=== PATIENT | female | born 1955 | race Caucasian/White ===

== ENCOUNTER 2017-07-16 08:03 | Day surgery (SDC) | payer BC ==
--- NOTE | 2017-07-16 08:01 | PCM.OPNOTE ---
- General Post-Op/Procedure Note Date of Surgery/Procedure: 07/16/17 Operative Procedure(s): Laparoscopic assisted vaginal hysterectomy with bilateral salpingo-oophorectomy Findings: Uterus with multiple subserosal small fibroids. Ovaries appeared atrophic. Normal appearance of the fallopian tubes. Pre Op Diagnosis: History of breast cancer on tamoxifen. Endometrial cells on pap. Thickened endometrial lining Post-Op Diagnosis: Same Anesthesia Technique: General ET Tube Primary Surgeon: Jessica Hernandez Secondary Surgeon: Denisse Lynn Anesthesia Provider: Amadou Gongora Pathology: Cervix, uterus, fallopian tubes, and ovaries sent to pathology Fluid Replacement, Intraop: 1,500 Output, Urine Amount: 350 EBL in mLs: 50 Complications: None Condition: Good Free Text/Narrative:: The risks, benefits, indications, potential complications, and alternatives were explained to the patient and informed consent obtained. The patient was taken to the Operating Room where general anesthesia was induced without complication. The patient was placed in dorsal lithotomy with Mario Stirrups and an exam under anesthesia revealed the findings detailed above. The patient was then prepped and draped in the usual sterile fashion. A sponge stick was placed into the vagina for uterine manipulation given significant cervical stenosis. A Cook catheter was placed in sterile fashion. Attention was then turned to the patients abdomen where a Veress needle was carefully introduced into the peritoneal cavity while tenting the abdominal wall. Intraperitoneal placement was confirmed by free flow of saline into the abdomen from a syringe open to gravity and with a low intraabdominal pressure with insufflation of C02 gas on low flow. The gas was increased to high flow and a pneumoperitoneum was obtained with C02 gas to a pressure of 15 mm Hg. A 5 mm skin incision was made in a vertical fashion in the umbilical fold and a 5 mm blunt trocar was inserted into the abdomen with direct visualization of the laparoscope through the clear view trocar lens. 5 mm skin incisions were made in both the left and right lower quadrants approximately 10 cm lateral and 3 cm inferior to the umbilicus. 5 mm blunt trocars were inserted into the abdomen under direct visualization with care to avoid the abdominal wall vasculature. A blunt probe and grasper were inserted through the accessory ports and a survey of the abdomen revealed the findings detailed above. The right ovary was elevated with a blunt grasper and the right ureter was identified. The right infundibulopelvic pelvic ligament was grasped with the LigaSure and doubly burned and then transected. The LigaSure was then used to cauterize and transect along the fallopian tube from the level of the ovary to the uterine cornua. The round ligament on the right was then elevated, cauterized, and transected with the Ligasure. Hemostasis was noted. Next, the vesicouterine peritoneum was elevated gently with a blunt grasper and the Ligasure was used dissect the vesicouterine peritoneum to make a bladder flap. Two more small bites along the right side of the uterus were made with the Ligasure to skeletonize the uterine artery. Hemostasis was noted. The exact same procedure was carried out on the left. Hemostasis as noted. The CO2 gas was turned off and the laparoscope was removed. Attention was then turned to the vaginal portion of the procedure. A short weighted speculum was placed in the vagina, and the cervix was grasped with a tenaculum. The cervix was injected circumferentially with 15 cc of lidocaine with dilute epinephrine. The cervix was then circumferentially incised with a scalpel. A Raytec was used to bluntly dissect the cervix circumferentially until an avascular plane was obtained. The posterior cul-de-sac was entered sharply without difficulty. The short weighted speculum was replaced by the long weighted speculum. The uterosacral ligaments were grasped on either side with the LigaSure, cauterized, and transected. The bladder was dissected off the pubovesical cervical fascia anteriorly with a sponge and blunt dissection. The anteiror cul-de-sac was then entered sharply without difficulty. The cardinal ligaments were then serially clamped on both sides with the LigaSure, cauterized, and transected. The uterine arteries were then clamped, cauterized, and transected with the Ligasure. The fundus and adnexa were confirmed to be free of any further peritoneal attachments and then were pulled out through the vagina. The posterior peritoneum was closed to the vaginal cuff with a running , lock suture of 0 Vicryl. The vaginal cuff was closed with an 0-Vicryl in a running locked fashion. Hemostasis was noted. Attention was then again turned to the abdomen. All members of the surgical team changed gloves. The laparoscope was again inserted and the abdomen was again insufflated with CO2. The pedicles were again visualized. Hemostasis was confirmed. The patient was taken out of Trendelenberg position. The accessory trocars were removed under direct visualization. The pneumoperitoneum was allowed to escape. The umbilical trocar was removed and lastly the camera was removed from the abdomen under direct visualization to confirm no herniation into the port site. All skin incisions were re-approximated with 4-0 Monocryl and sealed with Dermabond. Hemostasis was noted. A total of 10 cc of 0.25% Marcaine was injected into the subcutaneous tissues surrounding the skin incisions for local anesthesia. All sponge, lap, needle, and instrument counts were correct x 2. The patient tolerated the procedure well and there were no complications.
[~2017-07-16 08:03] MED LIST: Bupivacaine 0.5% 30 ML SDV ONE; Lactated Ringers 1,000 ML IV SCH; Lidocaine 1% with EPINEPHrine 1:100,000 20 ML MDV ONE; Lidocaine 1%/Sod Bicarbonate in NS 8.4% 1 ML Syringe IDERM PRN; Sodium Chloride 0.9% 10 ML Syringe FLUSH PRN
[2017-07-16] MEDS ORDERED: Propofol 200 MG/20 ML SDV ONE (08:43)
[2017-07-16] MEDS ORDERED: Midazolam 1 MG/ML 2 ML SDV ONE (08:43)
[2017-07-16] MEDS ORDERED: fentaNYL 250 MCG/5 ML SDV ONE (08:43)
[2017-07-16] MEDS ORDERED: Ondansetron 4 MG/2 ML SDV ONE (08:46)
[2017-07-16] MEDS ORDERED: Dexamethasone 4 MG/ML 5 ML MDV ONE (08:46)
[2017-07-16] MEDS ORDERED: Rocuronium 50 MG/5 ML Vial ONE (08:46)
[2017-07-16] MEDS ORDERED: Lidocaine 1% 4 ML ONE (08:46)
[2017-07-16] MEDS ORDERED: ceFAZolin 1 GM Vial ONE (08:47)
--- NOTE | 2017-07-16 10:00 | PCM.PREANE ---
Preanesthetic Assessment - Procedure Proposed Procedure: LAVH with BSO - Anesthesia/Transfusion/Family Hx Anesthesia History: Prior Anesthesia Without Reaction Family History of Anesthesia Reaction: No Transfusion History: No Prior Transfusion(s) - Review of Systems General: No Symptoms Pulmonary: No Symptoms Cardiovascular: Other (HTN) Gastrointestinal: No Symptoms Neurological: No Symptoms Other: Reports: None - Physical Assessment NPO Status Date: 07/16/17 NPO Status Time: 07:00 O2 Sat by Pulse Oximetry: 100 Respiratory Rate: 16 Vital Signs: Last Vital Signs Temp 36.7 C 07/16/17 08:10 Pulse 65 07/16/17 08:10 Resp 16 07/16/17 08:10 BP 146/65 H 07/16/17 08:10 Pulse Ox 100 07/16/17 08:10 Height: 1.68 m Weight: 63.503 kg ASA Class: 2 Mental Status: Alert & Oriented x3 Airway Class: Mallampati = 1 Dentition: Reports: Normal Dentition Thyro-Mental Finger Breadths: 3 Mouth Opening Finger Breadths: 3 ROM/Head Extension: Full Lungs: Clear to Auscultation, Normal Respiratory Effort Cardiovascular: Regular Rate, Regular Rhythm - Lab Values: Laboratory Last Values WBC 5.26 K/mm3 (3.98-10.04) 07/16/17 08:35 RBC 4.50 M/mm3 (3.98-5.22) 07/16/17 08:35 Hgb 14.1 gm/L (11.2-15.7) 07/16/17 08:35 Hct 42.6 % (34.1-44.9) 07/16/17 08:35 MCV 94.7 fl (79.4-94.8) 07/16/17 08:35 MCH 31.3 pg (25.6-32.2) 07/16/17 08:35 MCHC 33.1 g/dl (32.2-35.5) 07/16/17 08:35 RDW Std Deviation 41.7 fL (36.4-46.3) 07/16/17 08:35 Plt Count 308 K/mm3 (182-369) 07/16/17 08:35 MPV 10.0 fl (9.4-12.3) 07/16/17 08:35 Neut % (Auto) 59.1 % (34.0-71.1) 07/16/17 08:35 Lymph % (Auto) 27.8 % (19.3-51.7) 07/16/17 08:35 [place] % (Auto) 8.9 % (4.7-12.5) 07/16/17 08:35 Eos % (Auto) 3.0 (0.7-5.8) 07/16/17 08:35 Baso % (Auto) 1.0 % (0.1-1.2) 07/16/17 08:35 Neut # (Auto) 3.11 K/mm3 (1.56-6.13) 07/16/17 08:35 Lymph # (Auto) 1.46 K/mm3 (1.18-3.74) 07/16/17 08:35 [place] # (Auto) 0.47 K/mm3 (0.24-0.36) H 07/16/17 08:35 Eos # (Auto) 0.16 K/mm3 (0.04-0.36) 07/16/17 08:35 Baso # (Auto) 0.05 K/mm3 (0.01-0.08) 07/16/17 08:35 Sodium 147 mEq/L (136-145) H 07/16/17 08:35 Potassium 4.9 mEq/L (3.5-5.1) 07/16/17 08:35 Chloride 109 mEq/L (98-107) H 07/16/17 08:35 Carbon Dioxide 28 mEq/L (21-32) 07/16/17 08:35 Anion Gap 14.9 (5-15) 07/16/17 08:35 BUN 17 mg/dL (7-18) 07/16/17 08:35 Creatinine 0.9 mg/dL (0.55-1.02) 07/16/17 08:35 Est Cr Clr Drug Dosing 62.23 mL/min 07/16/17 08:35 Estimated GFR (MDRD) > 60 mL/min (>60) 07/16/17 08:35 BUN/Creatinine Ratio 18.9 (14-18) H 07/16/17 08:35 Glucose 103 mg/dL (74-106) 07/16/17 08:35 Calcium 9.3 mg/dL (8.5-10.1) 07/16/17 08:35 Blood Type A POSITIVE 07/16/17 08:35 Gel Antibody Screen Negative 07/16/17 08:35 - Allergies Allergies/Adverse Reactions: Allergies Allergy/AdvReac Type Severity Reaction Status Date / Time bee venom protein (honey bee) Allergy Patient Verified 07/16/17 09:08 did not list. - Blood Blood Available: No Product(s) Available: None - Anesthesia Plan Pre-Op Medication Ordered: None - Acknowledgements Anesthesia Type Planned: General Anesthesia (OETT) Pt an Appropriate Candidate for the Planned Anesthesia: Yes Alternatives and Risks of Anesthesia Discussed w Pt/Guardian: Yes Pt/Guardian Understands and Agrees with Anesthesia Plan: Yes PreAnesthesia Questionnaire Cardiovascular History: Reports: Hypertension Gastrointestinal History: Reports: Irritable Bowel Syndrome Oncologic (Cancer) History: Reports: Breast - Past Surgical History GI Surgical History: Reports: Colonoscopy, Hernia Repair/Other Female Surgical History: Reports: D&C, Other (See Below) Other Female Surgeries/Procedures: hysteroscopy, colposcopy Oncologic Surgical History: Reports: Lumpectomy Dermatological Surgical History: Reports: Other (See Below) - SUBSTANCE USE Smoking Status *Q: Never Smoker Second Hand Smoke Exposure: No Days Per Week of Alcohol Use: 4 Number of Drinks Per Day: 1 Total Drinks Per Week: 4 Recreational Drug Use History: No - HOME MEDS Home Medications: Home Meds Calcium Carbonate/Vitamin D3 [Caltrate 600 + D Soft Chew Tab] 1 tab PO DAILY 11/25 [History] Losartan [Cozaar] 50 mg PO DAILY 11/19/13 [History] Multivitamin [Multi-Vitamin Daily] 1 tab PO DAILY 11/19/13 [History] Tamoxifen [Nolvadex] 20 mg PO DAILY 11/19/13 [History] Vitamin B Complex [B Complex] 1 tab PO DAILY 11/19/13 [History] - CURRENT (IN HOUSE) MEDS Current Meds: Current Medications Lactated Ringer's (Ringers, Lactated) 1,000 mls @ 125 mls/hr IV ASDIRECTED BRANDEE Stop: 07/16/17 23:00 Last Admin: 07/16/17 08:35 Dose: 125 mls/hr Lidocaine/Sodium Bicarbonate (Buffered Lidocaine 1% In Ns 8.4%) 0.25 ml IDERM ONETIME PRN PRN Reason: Prior to IV Start Stop: 07/16/17 18:00 Last Admin: 07/16/17 08:34 Dose: 0.25 ml Sodium Chloride (Saline Flush) 10 ml FLUSH ASDIRECTED PRN PRN Reason: Keep Vein Open Stop: 07/16/17 18:00 Discontinued Medications Bupivacaine HCl (Marcaine 0.5%) Confirm Administered Dose 30 ml .ROUTE .STK-MED ONE Stop: 07/16/17 07:58 Cefazolin Sodium (Ancef) Confirm Administered Dose 2 gm .ROUTE .STK-MED ONE Stop: 07/16/17 08:48 Dexamethasone (Dexamethasone) Confirm Administered Dose 20 mg .ROUTE .ST-MED ONE Stop: 07/16/17 08:47 Fentanyl (Sublimaze) Confirm Administered Dose 250 mcg .ROUTE .ST-MED ONE Stop: 07/16/17 08:44 Hydromorphone HCl (Dilaudid) Confirm Administered Dose 0.5 mg .ROUTE .STK-MED ONE Stop: 07/16/17 10:06 Hydromorphone HCl (Dilaudid) Confirm Administered Dose 0.5 mg .ROUTE .ST-MED ONE Stop: 07/16/17 10:06 Lidocaine HCl (Xylocaine-Mpf 1%) Confirm Administered Dose 4 mls @ as directed .ROUTE .ST-MED ONE Stop: 07/16/17 08:47 Lidocaine/Epinephrine (Xylocaine 1% With Epinephrine 1:100,000) Confirm Administered Dose 20 ml .ROUTE .STK-MED ONE Stop: 07/16/17 07:58 Midazolam HCl (Versed 1 Mg/Ml) Confirm Administered Dose 2 mg .ROUTE .STK-MED ONE Stop: 07/16/17 08:44 Ondansetron HCl (Zofran) Confirm Administered Dose 4 mg .ROUTE .ST-MED ONE Stop: 07/16/17 08:47 Propofol (Diprivan 20 Ml) Confirm Administered Dose 200 mg .ROUTE .STK-MED ONE Stop: 07/16/17 08:44 Rocuronium [place] (Zemuron) Confirm Administered Dose 50 mg .ROUTE .STK-MED ONE Stop: 07/16/17 08:47
[2017-07-16] MEDS ORDERED: Promethazine 6.25 MG in Sodium Chloride 0.9% 50 ML IV PRN (10:01)
[2017-07-16] MEDS ORDERED: Ondansetron 4 MG/2 ML SDV IVPUSH PRN (10:01)
[2017-07-16] MEDS ORDERED: Meperidine PF 50 MG/ML Syringe IVPUSH PRN (10:01)
[2017-07-16] MEDS ORDERED: diphenhydrAMINE 50 MG/ML SDV IVPUSH PRN (10:01)
[2017-07-16] MEDS ORDERED: fentaNYL 100 MCG/2 ML SDV IVPUSH PRN (10:01)
[2017-07-16] MEDS ORDERED: HYDROmorphone 0.5 MG/0.5 ML Syringe IVPUSH ONE (10:01)
[2017-07-16] MEDS ORDERED: HYDROmorphone 0.5 MG/0.5 ML Syringe ONE ×2 (10:05)
--- NOTE | 2017-07-16 12:01 | PCM.POSTAN ---
POST ANESTHESIA ASSESSMENT - MENTAL STATUS Mental Status: Alert, Oriented - VITAL SIGNS Pulse Rate: 70 SaO2: 100 Resp Rate: 12 Blood Pressure: 154/75 Temperature: 36.6 C - RESPIRATORY Respiratory Status: Respiratory Rate WNL, Airway Patent, O2 Saturation Stable, Supplemental Oxygen - CARDIOVASCULAR CV Status: Pulse Rate WNL, Blood Pressure Stable - GASTROINTESTINAL GI Status: No Symptoms - PAIN Pain Score: 0 - POST OP HYDRATION Hydration Status: Adequate & Stable
[2017-07-16] MEDS ORDERED: Ketorolac 30 MG/ML SDV ONE (12:10)
--- NOTE | 2017-07-16 13:55 | PCM48HPAN ---
Post Anesthesia Note - EVALUATION WITHIN 48HRS OF ANESTHETIC Vital Signs in Normal Range: Yes Patient Participated in Evaluation: Yes Respiratory Function Stable: Yes Airway Patent: Yes Cardiovascular Function Stable: Yes Hydration Status Stable: Yes Pain Control Satisfactory: Yes Nausea and Vomiting Control Satisfactory: Yes Mental Status Recovered: Yes
== END 2017-07-16 15:36 | disposition home or self-care (01) ==
LOC: JD.SDS 08:03
PROVIDERS: ATTEND Obstetrics & Gynecology
DX: N84.0 Polyp of corpus uteri (principal); N87.9 Dysplasia of cervix uteri, unspecified; D25.9 Leiomyoma of uterus, unspecified; N83.312 Acquired atrophy of left ovary; N83.311 Acquired atrophy of right ovary; I10 Essential (primary) hypertension; Z91.030 Bee allergy status
CPT/HCPCS: 36415; 58552; 80048; 85025; 86850; 86900; 86901; 93005; J0690; J1100; J1170; J1885; J2250; J2405; J3010; J7120; 00840; J2001; J2704

== ENCOUNTER 2025-01-25 16:23 | Emergency (ER) | payer MEDICARE, OTHER ==
[2025-01-25] MEDS ORDERED: Sodium Chloride 0.9% 10 ML Syringe FLUSH PRN (16:34)
[2025-01-25 17:04] LABS: BASOPHILS ABSOLUTE AUTO 0.1 K/mm3 (0.0-0.2); BASOPHILS PERCENT AUTO 0.8 % (0.0-1.0); EOSINOPHILS ABSOLUTE AUTO 0.3 K/mm3 (0.0-0.4); EOSINOPHILS PERCENT AUTO 3.4 % (0.0-6.0); IMMATURE GRAN ABSOLUTE AUTO 0.03 K/mm3 (0.00-0.05); IMMATURE GRAN PERCENT AUTO 0.4 % (0.0-0.4); LYMPHOCYTES ABSOLUTE AUTO 2.2 K/mm3 (1.0-4.8); LYMPHOCYTES PERCENT AUTO 26.1 % (24.0-44.0); MEAN PLATELET VOLUME 9.6 fl (9.4-12.3); MONOCYTES ABSOLUTE AUTO 0.6 K/mm3 (0.0-0.8); MONOCYTES PERCENT AUTO 6.8 % (0.0-8.0); NEUTROPHILS ABSOLUTE AUTO 5.3 K/mm3 (1.8-7.7); NEUTROPHILS PERCENT AUTO 62.5 % (41.0-71.0); NRBC ABSOLUTE 0.00 (0.00-0.02); NRBC PERCENT 0.0 % (0.0-0.2); PLATELET COUNT,PLT 386 K/mm3 (150-400); RED BLOOD CELL COUNT 4.67 M/mm3 (4.10-5.30); WHITE BLOOD CELL COUNT,WBC 8.49 K/mm3 (3.9-11.3)
[2025-01-25 17:31] LABS: A/G RATIO 1.3 (1-2); ALANINE AMINOTRANSFERASE,ALT 24.0 U/L (14-59); ASPARTATE AMNIOTRANSFERASE,AST 14.0 U/L (15-37); BILIRUBIN TOTAL 0.3 mg/dL (0.2-1.0); BLOOD UREA NITROGEN,BUN 20.0 mg/dL (7-18); CARBON DIOXIDE,CO2 30.0 mEq/L (21-32); CHLORIDE,CL 108.0 mEq/L (98-107); CREATININE 1.0 mg/dL (0.55-1.02); EST CRCL DRUG DOSING (CG) 48.45 mL/min; ESTIMATED GFR 61.0 mL/min (>60); GLUCOSE RANDOM 103.0 mg/dL (70-99); POTASSIUM,K 4.5 mEq/L (3.5-5.1); PROTEIN TOTAL,TP 6.9 g/dl (6.4-8.2); SODIUM,NA 144.0 mEq/L (136-145); TROPONIN I HIGH SENSITIVITY 8.0 pg/mL (<=51); TSH 2.247 uIU/mL (0.358-3.74)
== END 2025-01-25 18:30 | disposition home or self-care (01) ==
LOC: JD.ED 16:23
DX: I11.9 Hypertensive heart disease without heart failure (principal); Z91.030 Bee allergy status; Z79.899 Other long term (current) drug therapy
CPT/HCPCS: 36415; 71046; 71046-26; 80053; 84443; 84484; 85025; 93005; 99283; 99284